=== PATIENT | female | born 1970 | race Caucasian/White ===

== ENCOUNTER 2019-07-03 08:16 | Outpatient (RCR) | payer OTHER, SELFPAY ==
--- NOTE | 2019-07-03 08:49 | PTOPEVAL ---
Thank you for referring this patient to [facility]. Please review, sign, date and return this plan of care CLAYTON. I agree with and certify that the following plan of care is medically necessary. Referring Physician Date Admitting Provider: Attending Provider: PHYSICIAN NOT ON STAFF Referring Provider: *PT Outpatient Evaluation Start: 07/03/19 07:50 Freq: Status: Active Protocol: Document 07/03/19 07:00 MANJU (Rec: 07/03/19 08:49 Estelle [id number]) Therapy Assessment Status Assessment Status Assessment Status Evaluation Evaluation Information Problem Diagnosis s/p R lower leg surgery Onset 05/23/19 Subjective Information patient reports she had Query Text:As Reported By Patient/ surgery on her R lower leg to Family fix the plantar fascitis in the foot. she reports she was in a boot for 5 weeks and is now out of her boot and ready to begin therapy. she reports she still has pain at times thorughout her day. she reports she is working and has has some increased pain in the R foot/heel still with working. Prior Level of Function Comments Additional Prior Level of Function patient stands for work for Comments long hours. she reports prior to surgery she was having pain in the heel with standing and all activities in WB. she reports prior to surgery she was able to run, ride a bike, and participate in workouts. Pain Assessment Timing of Pain Assessment Timing of Pain Assessment Assessment Pain Scale Pain Scale Used Numeric (1 - 10) Self Report Pain Assessment Right Heel(s) Reported Pain Level 2 Pain Description Aching,Soreness Pain Frequency Acute,Chronic,Intermittent Current Pain Intensity 2 Lowest Pain Intensity 0 Greatest Pain Intensity 6 Pain Level Goal 0 Pain Aggravating Factors Walking,Weight Bearing/ Standing Pain Score Pain Score 2: Self Report Lower Extremity Range of Motion Ankle/Foot Range of Motion Right Ankle Dorsiflextion With Knee Extension 25 Range of Motion - Active Ankle Plantarflexion Range of Motion - 42 Active Query Text: Left Ankle D
--- NOTE | 2019-08-08 15:35 | PCPTNOTE ---
Patient called and canelled treatment today. JT
== END 2019-08-11 15:15 | disposition home or self-care (01) ==
LOC: CHSPT 08:16
DX: S83.412A Sprain of medial collateral ligament of left knee, initial encounter (principal); Z98.890 Other specified postprocedural states
CPT/HCPCS: 97110; 97140; 97161

== ENCOUNTER 2019-08-08 13:53 | Outpatient (CLI) | payer OTHER, SELFPAY | END 2019-08-08 13:54 | disposition home or self-care (01) | LOC: CHSLAB 13:55 | PROVIDERS: PCP Internal Medicine; Visit Provider Specialist | DX: D22.5 Melanocytic nevi of trunk (principal) | CPT/HCPCS: 88305; 88342 ==

== ENCOUNTER 2019-09-05 14:35 | Outpatient (CLI) | payer OTHER, SELFPAY ==
--- NOTE | ~2019-09-05 | MM_ITS ---
EXAMINATION: MM screening [facility] BI w sarah HISTORY: Screening mammogram TECHNIQUE: Craniocaudal and mediolateral oblique 3-D tomosynthesis images were obtained and synthetic 2-D images were generated. CAD analysis was submitted and interpreted. COMPARISON: Comparison to multiple prior studies sequentially, with oldest reviewed study dated 03/22. BREAST PARENCHYMAL COMPOSITION: There are scattered areas of fibroglandular density. FINDINGS: There is no evidence of suspicious mass, calcification, or architectural distortion to sugg est malignancy in either breast. There has been no suspicious interval change. IMPRESSION: 1. No mammographic evidence of malignancy. 2. Recommend routine screening mammography in one year. BI-RADS Category 1: Negative Reviewed, dictated and finalized at location A.
== END 2019-09-05 14:36 | disposition home or self-care (01) ==
LOC: CHSIMG 14:38
PROVIDERS: PCP Internal Medicine; Visit Provider Obstetrics & Gynecology
DX: Z12.31 Encounter for screening mammogram for malignant neoplasm of breast (principal)
CPT/HCPCS: 77063; 77067

== ENCOUNTER 2020-09-05 13:53 | Outpatient (CLI) | payer OTHER, SELFPAY ==
--- NOTE | ~2020-09-05 | MM_ITS ---
EXAMINATION: MM screening [facility] BI w sarah HISTORY: Screening TECHNIQUE: Craniocaudal and mediolateral oblique 3-D tomosynthesis images were obtained and synthetic 2-D images were generated. CAD analysis was submitted and interpreted. COMPARISON: Comparison to multiple prior studies sequentially, with oldest reviewed study dated 04/21. BREAST PARENCHYMAL COMPOSITION: There are scattered areas of fibroglandular density. FINDINGS: There is developing asymmetry laterally in the right breast on CC view only. The left breas t is stable without evidence for malignancy. IMPRESSION: 1. Developing right breast asymmetry laterally on CC view. 2. Additional mammographic views and possible breast ultrasound are recommended. BI-RADS Category 0: Incomplete: Needs additional imaging evaluation. Reviewed, dictated and finalized at location A. IMPRESSION: 1. Developing right breast asymmetry laterally on CC view. 2. Additional mammographic views and possible breast ultrasound are recommended . BI-RADS Category 0: Incomplete: Needs additional imaging evaluation.
== END 2020-09-05 13:54 | disposition home or self-care (01) ==
LOC: CHSIMG 13:55
PROVIDERS: PCP Internal Medicine; Visit Provider Obstetrics & Gynecology
DX: Z12.31 Encounter for screening mammogram for malignant neoplasm of breast (principal)
CPT/HCPCS: 77063; 77067

== ENCOUNTER → 2020-09-21 05:20 | Outpatient (CLI) | payer OTHER, SELFPAY ==
[2020-09-21 19:33] LABS: SARS-CoV-2 RNA PCR Negative
== END ==
PROVIDERS: PCP Internal Medicine; Visit Provider Internal Medicine Gastroenterology
DX: Z01.812 Encounter for preprocedural laboratory examination (principal); Z20.822 Contact with and (suspected) exposure to COVID-19
CPT/HCPCS: C9803; U0003; U0005

== ENCOUNTER 2020-09-24 01:11 | Day surgery (SDC) | payer OTHER, SELFPAY ==
[2020-09-10 14:35] VITALS: BMI 31.1
[2020-09-24 07:54] VITALS: BP 137/53; PULSE 71; RESP 16; TEMP 36.4; O2SAT 99; BMI 29.5
[2020-09-24] MEDS: LACTATED RINGERS 1,000 ML 150 ML IV CONT (08:06)
--- NOTE | 2020-09-24 08:48 | WPDANESEPPF ---
Anes - Initial Pre Proc Eval Procedure: Operation Date: 09/24/20 09:00 Proposed Procedures p Screening Colonoscopy - Meir Shi MD Date/Time: 09/24/20 08:48 Surgeon: Meir Shi MD Pre Op Diagnosis: Neoplasm Screening Patient Data Age: 50 Gender: F Height: 5 ft 7 in Weight: 85.6 kg Last Vital Signs Temp 97.6 F 09/24/20 07:54 Pulse 71 09/24/20 07:54 Resp 16 09/24/20 07:54 BP 137/53 L 09/24/20 07:54 Pulse Ox 99 09/24/20 07:54 Allergies Allergy/AdvReac Type Severity Reaction Status Date / Time No Known Allergies Allergy Verified 09/24/20 07:52 Home Medications Medication Instructions Recorded Confirmed Type aspirin 81 mg tablet,delayed 81 mg PO DAILY 05/02/19 09/10/20 History release cholecalciferol (vitamin D3) 25 1,000 unit PO DAILY 05/02/19 09/10/20 History mcg (1,000 unit) capsule multivitamin 1 tablet PO DAILY 05/02/19 09/10/20 History esterified 1 tablet PO DAILY #90 tablet 06/12/20 09/10/20 Rx estrogens-methyltestosterone 1.25 mg-2.5 mg tablet progesterone micronized 100 mg 100 mg PO QAM #90 cap 06/12/20 09/10/20 Rx capsule sodium,potassium,mag sulfates 17.5 See Rx Instructions PO .COMPLEX 08/19/20 Rx gram-3.13 gram-1.6 gram oral soln #354 ml pregabalin 75 mg PO DAILY 09/10/20 09/10/20 History Patient hx anesthesia problems: none Family hx anesthesia problems: none PMFSH Past Medical History Medical History (Updated 09/24/20 @ 08:46 by Drew Hawkins MD) Peripheral neuropathy Varicose vein of leg Surgical History Surgical History History of nasal surgery Family History Family History Father Cerebrovascular accident Mother Family history of type 2 diabetes mellitus Social History Social History Smoking packs per day: 1 Smoking cigarettes per day: 20.0 Years smoked: 10 Smoking pack-years: 10.00 Smoking status: Former smoker Tobacco type: cigarettes Alcohol intake: never Substance use type: does not use Living arrangements: with family Spiritual care concerns: No Anes - Eval Final PreProcedure Day of Procedure 09/24/20 08:48 Patient weight: overweight Heart: regular rate and rhythm Lungs: clear to auscultation Airway: Mallampati scale class II Neurological: alert and oriented Last oral intake: >/= 8 hours ASA classification: II Emergent: no Anesthetic plan: proceed Anesthesia type and monitoring: general GIVS and standard monitoring Informed Consent: The patient's anesthetic plan and its attendant risks and benefits were discussed with the patient/family/POA. Questions were solicited and answers provided to the satisfaction of the patient/family/POA.
--- NOTE | 2020-09-24 08:54 | PM.HPGS ---
History of Present Illness History of Present Illness Consent: Risks, benefits, and alternatives have been discussed and questions answered. Patient agrees to proceed with procedure. Chief complaint: Neoplasm Screening Narrative: Genet More is a 50 year old female here for first screening colonoscopy Review of Systems Constitutional: Constitutional: Denies headache(s) and Denies weakness Eyes: Eyes: Denies blurry vision ENT: Reports Normal hearing present, Denies headache(s) and Denies neck pain Cardiovascular: Cardiovascular: Denies chest pain and Denies dyspnea Respiratory: Respiratory: Denies dyspnea Gastrointestinal: Gastrointestinal: Reports no additional gastrointestinal complaints Genitourinary: Genitourinary: Denies dysuria Musculoskeletal: Musculoskeletal: Denies neck pain Integumentary/Breasts: Skin/Breast: Denies dry skin Neurologic: Reports Normal hearing present, Denies headache(s) and Denies weakness Psychiatric: Psychiatric: Denies anxiety Endocrine: Endocrine: Denies change in body appearance Hematologic/Lymphatic: Hematologic/Lymphatic: Denies easy bleeding Allergic/Immunologic: Allergic/Immunologic: Denies urticaria [facility] Past Medical History Medical History (Updated 09/24/20 @ 08:54 by Meir Shi MD) Colon cancer screening Peripheral neuropathy Varicose vein of leg Surgical History Surgical History History of nasal surgery Family History Family History Father Cerebrovascular accident Mother Family history of type 2 diabetes mellitus Social History Social History Smoking packs per day: 1 Smoking cigarettes per day: 20.0 Years smoked: 10 Smoking pack-years: 10.00 Smoking status: Former smoker Tobacco type: cigarettes Alcohol intake: never Substance use type: does not use Living arrangements: with family Spiritual care concerns: No Meds Home Medications and Allergies Home Medications Medication Instructions Recorded Confirmed Type aspirin 81 mg tablet,delayed 81 mg PO DAILY 05/02/19 09/10/20 History release cholecalciferol (vitamin D3) 25 1,000 unit PO DAILY 05/02/19 09/10/20 History mcg (1,000 unit) capsule multivitamin 1 tablet PO DAILY 05/02/19 09/10/20 History esterified 1 tablet PO DAILY #90 tablet 06/12/20 09/10/20 Rx estrogens-methyltestosterone 1.25 mg-2.5 mg tablet progesterone micronized 100 mg 100 mg PO QAM #90 cap 06/12/20 09/10/20 Rx capsule sodium,potassium,mag sulfates 17.5 See Rx Instructions PO .COMPLEX 08/19/20 Rx gram-3.13 gram-1.6 gram oral soln #354 ml pregabalin 75 mg PO DAILY 09/10/20 09/10/20 History Allergies Allergy/AdvReac Type Severity Reaction Status Date / Time No Known Allergies Allergy Verified 09/24/20 07:52 Vital Signs Vital Signs - 24 hr 09/24/20 07:54 Temperature 97.6 F Pulse Rate 71 Respiratory Rate 16 Blood Pressure 137/53 L Pulse Oximetry 99 Exam Const: General: comfortable and no acute distress HENMT: General nose exam: Normal nares present Eyes: General: appearance normal, both eyes and all related structures Neck: Neck: no JVD Resp: Auscultation: clear to auscultation bilaterally Cardio: Rate: regular rate Rhythm: regular rhythm GI: Inspection: non-distended GI Palp: Yes Soft to palpation Skin: General skin exam: normal color Neuro: General: gait normal Speech: normal speech Extrem: General: normal to inspection Psych: Mental Status: mental status grossly normal Assessment and Plan Assessment and plan (1) Colon cancer screening: Code(s): Z12.11 - Encounter for screening for malignant neoplasm of colon Status: Acute Assessment and Plan: proceed with colonoscopy
[2020-09-24 09:21] VITALS: BP 116/60; PULSE 73; RESP 21; O2SAT 100
[2020-09-24 09:31] VITALS: BP 116/62; PULSE 64; RESP 23; O2SAT 100
[2020-09-24 09:41] VITALS: BP 122/62; PULSE 70; RESP 20; O2SAT 100
== END 2020-09-24 09:52 | disposition home or self-care (01) ==
PROVIDERS: PCP Internal Medicine; Visit Provider Internal Medicine Gastroenterology
PROC: 0DJD8ZZ Inspection of Lower Intestinal Tract, Via Natural or Artificial Opening Endoscopic (ICD-10-PCS; CPT 45378; principal; 2020-09-24 09:00)
DX: Z12.11 Encounter for screening for malignant neoplasm of colon (principal); K63.5 Polyp of colon; K57.30 Diverticulosis of large intestine without perforation or abscess without bleeding; K64.8 Other hemorrhoids; G62.9 Polyneuropathy, unspecified; Z79.82 Long term (current) use of aspirin; Z87.891 Personal history of nicotine dependence
CPT/HCPCS: 45385; 88305; C9803; J2704; J7120; U0003; U0005

== ENCOUNTER 2020-10-04 09:00 | Outpatient (CLI) | payer OTHER, SELFPAY ==
--- NOTE | ~2020-10-04 | MMUS_ITS ---
EXAMINATION: MM diagnostic richard RT w sarah, US breast RT limited HISTORY: Follow-up developing right breast asymmetry TECHNIQUE: Additional 3-D tomosynthesis images of the right breast were performed and synthetic 2-D i mages were generated. CAD analysis was submitted and interpreted. High resolution Limited right breas t ultrasound was performed. COMPARISON: 09/05/2020 BREAST PARENCHYMAL COMPOSITION: Breast composed of scattered areas of fibroglandular density FINDINGS: MAMMOGRAPHIC FINDINGS: There are no suspicious masses, calcifications or architectural distortion in the right breast to sug gest malignancy. ULTRASOUND: Limited right breast ultrasound: At 12:00, 2 cm from the nipple there is a 3 mm cyst. At 6:00, 2 cm f rom the nipple there is a 2 mm complicated cyst. No suspicious masses to suggest malignancy. IMPRESSION: 1. No evidence for malignancy in the right breast. 2. Routine yearly screening mammogram and regular clinical breast examination are recommended. BI-RADS Category 2: Benign finding(s). Reviewed, dictated and finalized at location A. IMPRESSION: 1. No evidence for malignancy in the right breast. 2. Routine yearly screening mammogram and regular clinical breast examination a re recommended. BI-RADS Category 2: Benign finding(s).
== END 2020-10-04 09:01 | disposition home or self-care (01) ==
PROVIDERS: PCP Internal Medicine; Visit Provider Obstetrics & Gynecology
DX: R92.8 Other abnormal and inconclusive findings on diagnostic imaging of breast (principal)
CPT/HCPCS: 76642; 77061; 77065; G0279

== ENCOUNTER 2020-10-14 09:23 | Outpatient (CLI) | payer OTHER, SELFPAY ==
[2020-10-14 09:32] LABS: Basophils Absolute Auto 0.04 K/mm3 (0.00-0.10); Basophils Percent Auto 0.8 % (0.0-1.0); Eosinophils Absolute Auto 0.09 K/mm3 (0.02-0.50); Eosinophils Percent Auto 1.7 % (1.0-6.0); Hematocrit 43.7 % (35.0-49.0); Hemoglobin 14.2 g/dL (12.0-15.0); Immature Granulocyte Absolute 0.01 K/mm3 (0.00-0.00); Immature Granulocyte Percent A 0.2 % (0.0-0.0); Lymphocytes Absolute Auto 2.14 K/mm3 (1.10-4.50); Lymphocytes Percent Auto 40.5 % (18.0-42.0); Mean Corpuscular HGB Conc 32.5 g/dL (32.0-36.0); Mean Corpuscular Volume 89.4 fL (78.0-102.0); Mean Platelet Volume 11.4 fl (9.2-11.8); Monocytes Absolute Auto 0.36 K/mm3 (0.10-0.90); Monocytes Percent Auto 6.8 % (2.0-11.0); Neutrophils Absolute Auto 2.7 K/mm3 (1.7-7.2); Platelet Count Result 238 K/mm3 (150-420); Red Blood Count 4.89 M/mm3 (4.20-5.40); Red Cell Distribution Width 11.9 % (11.6-14.4); White Blood Count 5.3 K/mm3 (4.8-10.8)
[2020-10-14 10:24] LABS: Alanine Aminotransferase 67 U/L (14-59); Albumin Level 3.9 g/dL (3.4-5.0); Alkaline Phosphatase 85 U/L (46-116); Anion Gap 6 mmol/L (8-16); Aspartate Amino Transferase 29 U/L (15-37); Bilirubin,Total 0.4 mg/dL (0.00-1.00); Blood Urea Nitrogen 20 mg/dL (7-18); Calcium 9.1 mg/dL (8.5-10.1); Carbon Dioxide 29 mmol/L (21-32); Chloride 103 mmol/L (98-108); Cholesterol 222 mg/dL (0-200); Estimated Glomerular Filt Rate > 60; Glucose 92 mg/dL (70-99); HDL Direct 49 mg/dL (40-60); LDL Cholesterol Calculated 158 mg/dL (<130); Osmolality Calculated 288 mOsm/kg (285-295); Potassium 4.3 mmol/L (3.5-5.1); Sodium 138 mmol/L (136-145); Thyroid Stimulating Hormone 3.37 uIU/mL (0.36-3.74); Triglycerides 73 mg/dL (0-150)
[2020-10-14 12:38] LABS: Ferritin 270 ng/mL (8-252); GGT 56 U/L (5-55)
[2020-10-14 15:25] LABS: Add Urine Microscopic? NO; Appearance Urine Clear (Clear); Bilirubin Urine Negative (Negative); Blood Urine Negative (Negative); Color Urine Yellow (Yellow); Glucose Urine UA Negative (Negative); Ketones Urine Negative (Negative); Leukocyte Esterase Ur Negative (Negative); Nitrate Urine Negative (Negative); Protein Urine Negative (Negative); Specific Grav Ur >= 1.030 (1.010-1.020); Urobilinogen Urine 0.2 mg/dL (0.2-1.0); pH Urine 5.5 (5.0-8.0)
[2020-10-16 19:40] LABS: Hepatitis A Antibody IgM Nonreactive; Hepatitis B Core Antibody Nonreactive (Nonreactive); Hepatitis B Surface Antigen Nonreactive (Nonreactive); Hepatitis C Signal to Cutoff 0.01 ratio (<1.00); Hepatitis C Virus Antibody Nonreactive (Nonreactive)
== END 2020-10-14 09:24 | disposition home or self-care (01) ==
LOC: CHSLAB 09:25
PROVIDERS: PCP Internal Medicine; Visit Provider Internal Medicine
DX: Z00.00 Encounter for general adult medical examination without abnormal findings (principal); R94.5 Abnormal results of liver function studies
CPT/HCPCS: 36415; 80053; 80061; 80074; 81003; 82728; 82977; 84443; 85025

== ENCOUNTER 2021-02-04 10:54 | Outpatient (CLI) | payer OTHER, SELFPAY ==
--- NOTE | ~2021-02-04 | XR_ITS ---
EXAMINATION: XR hand RT min 3V DATE: 02/04/2021 11:23 INDICATION: Right hand injury. Right thumb pain. TECHNIQUE: 3 views of right hand were obtained. COMPARISON: None. FINDINGS: Bone alignment is normal. No fracture. There is mild osteoarthritis of first carpometacarpa l joint, first metacarpophalangeal joint, and first interphalangeal joint. IMPRESSION: 1. Mild polyarticular osteoarthritis. Reviewed, dictated and finalized at location B.
--- NOTE | ~2021-02-04 | XR_ITS ---
EXAMINATION: XR wrist RT min 3V DATE: 02/04/2021 11:23 INDICATION: Right wrist injury. Right thumb pain. TECHNIQUE: 4 views of right wrist were obtained. COMPARISON: None. FINDINGS: Bone alignment is normal. No fracture. There is mild osteoarthritis of first carpometacarpa l joint. IMPRESSION: 1. Mild osteoarthritis of first carpometacarpal joint. Reviewed, dictated and finalized at location B.
== END 2021-02-04 10:55 | disposition home or self-care (01) ==
LOC: CHSIMG 10:55
PROVIDERS: PCP Internal Medicine; Visit Provider Internal Medicine
DX: S69.91XA Unspecified injury of right wrist, hand and finger(s), initial encounter (principal)
CPT/HCPCS: 73110; 73130

== ENCOUNTER 2021-03-14 09:07 | Outpatient (CLI) | payer OTHER, SELFPAY ==
--- NOTE | ~2021-03-14 | XR_ITS ---
EXAMINATION: XR wrist RT min 3V EXAM DATE: 03/14/2021 09:33 INDICATION: Fx R distal radius-seen On Mri, follow Up, stiffness . TECHNIQUE: Right wrist frontal, frontal with ulnar deviation, oblique and lateral projections obtain ed and reviewed. Comparison is made to prior examination from 01/25/2021. FINDINGS: Right wrist scapholunate joint space is maintained. Possible tiny chip fracture off of the right radial distal metaphysis. No periosteal reaction or other suspicious findings. No evidence of s caphoid avascular necrosis. IMPRESSION: Possible tiny chip fracture off the posterior aspect right radial metaphysis. Reviewed, dictated and finalized at location B.
== END 2021-03-14 09:08 | disposition home or self-care (01) ==
PROVIDERS: PCP Internal Medicine; Visit Provider Internal Medicine
DX: S52.501D Unspecified fracture of the lower end of right radius, subsequent encounter for closed fracture with routine healing (principal)
CPT/HCPCS: 73110

== ENCOUNTER 2021-03-24 12:59 | Outpatient (RCR) | payer OTHER, SELFPAY ==
--- NOTE | 2021-03-24 14:19 | OTOPEVAL ---
Thank you for referring Genet More to [facility].? The patient is scheduled to be seen for therapy? ____x/week for ___ weeks. Please review, sign, date and return this plan of care CLAYTON. I agree with and certify that the following plan of care is medically necessary. Referring Physician Date Admitting Provider: Attending Provider: Joana Ponce MD Referring Provider: *OT Outpatient Evaluation Start: 03/24/21 12:30 Freq: Status: Active Protocol: Document 03/24/21 13:01 [facility] (Rec: 03/24/21 14:19 [facility] [id number]) Therapy Assessment Status Assessment Status Assessment Status Evaluation Outpatient Past Medical History Neurological History Hx Neurological Disorders No Significant History Cardiovascular History Hx Cardiac Disorders No Significant History Respiratory History Hx Respiratory Disorders No Significant History Gastrointestinal History Hx Gastrointestinal Disorders No Significant History Genitourinary History Hx Genitourinary Disorders No Significant History Musculoskeletal History Hx Orthopedic Surgery Yes: Plantar fasciitis Hx Other Musculoskeletal Disorders Yes: Nueropathy Hematological History Hx Hematological Disorders No Significant History Endocrine History Hx Endocrine Disorders No Significant History HEENT History Hx HEENT Disorders No Significant History Reproductive History Hx Post Menopausal Yes Evaluation Information Problem Diagnosis pain, decreased ROM in R wrist Onset 02/23/21 Cause R distal radius fracture Subjective Information Patient reports that she fell Query Text:As Reported By Patient/ on 02/23/21 and broke her R Family distal radius. Patient was in a splint for 2 weeks and then had an MRI taken that showed a fracture therefore spent 3 weeks in a cast. Patient has been out of the cast for 1 week and reports that it hurts worse now that it did when it was initially fractured. Patient reports that opening any container and carrying/ lifting anything is very difficult and painful. 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 Patient currently wears a splint while at work and at night. QuickDASH: 50.0% Diagnostic Tests X-Rays For This Problem Yes MRI For This Problem
--- NOTE | 2021-04-03 13:17 | PCOTNOTE ---
On 03/28/21, the student, [ Elza Sumner], provided care and completed [facility] documentation on this patient. I have reviewed the student's documentation and agree with the findings.MS
--- NOTE | 2021-04-03 13:18 | PCOTNOTE ---
On 04/02/21, the student, [Elza Sumner ], provided care and completed [facility] documentation on this patient. I have reviewed the student's documentation and agree with the findings.MS
--- NOTE | 2021-04-03 13:18 | PCOTNOTE ---
On 04/03/21, the student, [Elza Sumner ], provided care and completed [facility] documentation on this patient. I have reviewed the student's documentation and agree with the findings.MS
--- NOTE | 2021-04-29 14:51 | OTOPEVAL ---
Thank you for referring Genet More to [facility].? The patient is scheduled to be seen for therapy? ____x/week for ___ weeks. Please review, sign, date and return this plan of care CLAYTON. I agree with and certify that the following plan of care is medically necessary. Referring Physician Date Admitting Provider: Attending Provider: Joana Ponce MD Referring Provider: *OT Outpatient Evaluation Start: 03/24/21 12:30 Freq: Status: Active Protocol: Document 04/29/21 14:05 [facility] (Rec: 04/29/21 14:50 [facility] [place] [id number]) Therapy Assessment Status Assessment Status Assessment Status Discharge Outpatient Past Medical History Neurological History Hx Neurological Disorders No Significant History Cardiovascular History Hx Cardiac Disorders No Significant History Respiratory History Hx Respiratory Disorders No Significant History Gastrointestinal History Hx Gastrointestinal Disorders No Significant History Genitourinary History Hx Genitourinary Disorders No Significant History Musculoskeletal History Hx Orthopedic Surgery Yes: Plantar fasciitis Hx Other Musculoskeletal Disorders Yes: Nueropathy Hematological History Hx Hematological Disorders No Significant History Endocrine History Hx Endocrine Disorders No Significant History HEENT History Hx HEENT Disorders No Significant History Reproductive History Hx Post Menopausal Yes Evaluation Information Problem Subjective Information Patient reports that overall Query Text:As Reported By Patient/ her R wrist feels better but Family does continue to be painful at times. Patient is working and back to doing all hobbies and activities. Pain Assessment Timing of Pain Assessment Timing of Pain Assessment Re-assessment Self Report Self Report Pain Level 0 Pain Score Pain Score 0: Self Report Upper Extremity Range of Motion Wrist Range of Motion Right Wrist Flexion - Active 55 Wrist Extension - Active 65 Upper Extremity Muscle Strength Testing Wrist Strength Right Wrist Flexion Strength 5 Normal Wrist Extension Strength 5 Normal Hand Vaccine Customer Representative/Pinch Strength Assessment Hand Right Vaccine Customer Representative Strength (lbs) 60 Extremity Circumference Assessment Circumference Assessment Location Right Circumference Comments 16.25 cm General Exercise General Exercises Side Right Exercise Type Active Exercise Description 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
== END 2021-04-29 15:15 | disposition home or self-care (01) ==
LOC: CHSOT 12:59
PROVIDERS: PCP Internal Medicine; Visit Provider Internal Medicine
DX: S52.501D Unspecified fracture of the lower end of right radius, subsequent encounter for closed fracture with routine healing (principal)
CPT/HCPCS: 97014; 97110; 97140; 97165; G0283

== ENCOUNTER 2021-04-17 09:50 | Outpatient (CLI) | payer OTHER, SELFPAY ==
--- NOTE | ~2021-04-17 | XR_ITS ---
EXAMINATION: XR wrist RT min 3V INDICATION: Right distal radius fracture follow-up TECHNIQUE: Four views of the right wrist are obtained. COMPARISON: 03/14/2021, 02/04/2021 FINDINGS: There is no fracture, dislocation, or subluxation. There is mild osteoarthritis at the bhavesh caphe and first carpometacarpal joints. The soft tissues are unremarkable. IMPRESSION: 1. Mild osteoarthritis. Reviewed, dictated and finalized at location A. IMPRESSION: 1. Mild osteoarthritis.
== END 2021-04-17 09:51 | disposition home or self-care (01) ==
PROVIDERS: PCP Internal Medicine; Visit Provider Internal Medicine
DX: S52.501D Unspecified fracture of the lower end of right radius, subsequent encounter for closed fracture with routine healing (principal)
CPT/HCPCS: 73110

== ENCOUNTER 2021-05-22 13:06 | Outpatient (CLI) | payer OTHER, SELFPAY ==
[2021-05-22 13:41] LABS: Alanine Aminotransferase 79 U/L (14-59); Albumin Level 3.9 g/dL (3.4-5.0); Alkaline Phosphatase 80 U/L (46-116); Anion Gap 7 mmol/L (8-16); Aspartate Amino Transferase 41 U/L (15-37); Bilirubin,Total 0.5 mg/dL (0.00-1.00); Blood Urea Nitrogen 25 mg/dL (7-18); Calcium 8.7 mg/dL (8.5-10.1); Carbon Dioxide 31 mmol/L (21-32); Chloride 106 mmol/L (98-108); Estimated Glomerular Filt Rate 54; Glucose 85 mg/dL (70-99); Osmolality Calculated 301 mOsm/kg (285-295); Potassium 4.9 mmol/L (3.5-5.1); Sodium 144 mmol/L (136-145)
[2021-05-22 16:11] LABS: Ferritin 251 ng/mL (8-252); GGT 59 U/L (5-55)
== END 2021-05-22 13:07 | disposition home or self-care (01) ==
LOC: CHSLAB 13:08
PROVIDERS: PCP Internal Medicine; Visit Provider Internal Medicine
DX: R79.89 Other specified abnormal findings of blood chemistry (principal)
CPT/HCPCS: 36415; 80053; 82728; 82977

== ENCOUNTER 2021-05-28 08:50 | Outpatient (CLI) | payer OTHER, SELFPAY ==
--- NOTE | ~2021-05-28 | US_ITS ---
EXAMINATION: US right upper quadrant DATE: 05/28/2021 09:15 INDICATION: Abnormal liver function tests. TECHNIQUE: Multiple grayscale and Doppler ultrasound images of the abdomen were obtained. COMPARISON: None FINDINGS: The visualized portions of the head and body of the pancreas are normal. The liver is samantha l without focal lesion. No liver surface nodularity. There is normal flow in main portal vein. The ga llbladder is normal in size and contains sludge. No gallstones or gallbladder wall thickening. There was no sonographic Prado sign. The common duct is normal and measures 3 mm. IMPRESSION: 1. Gallbladder sludge. No evidence of acute cholecystitis. Reviewed, dictated and finalized at location A. OL ADMINISTRATOR
== END 2021-05-28 08:51 | disposition home or self-care (01) ==
LOC: CHSIMG 08:52
PROVIDERS: PCP Internal Medicine; Visit Provider Internal Medicine
DX: R94.5 Abnormal results of liver function studies (principal)
CPT/HCPCS: 76705

== ENCOUNTER 2021-10-06 14:01 | Outpatient (CLI) | payer BC, SELFPAY ==
--- NOTE | ~2021-10-06 | MM_ITS ---
EXAMINATION: MM screening [facility] BI w sarah HISTORY: Screening mammogram TECHNIQUE: Craniocaudal and mediolateral oblique 3-D tomosynthesis images were obtained and synthetic 2-D images were generated. CAD analysis was submitted and interpreted. COMPARISON: diagnostic right mammogram and limited right breast ultrasound 09/05/2020, 09/05/2019 bilateral screening mammogram examinations BREAST PARENCHYMAL COMPOSITION: There are scattered areas of fibroglandular density. FINDINGS: There is no evidence of suspicious mass, calcification, or architectural distortion to sugg est malignancy in either breast. There has been no suspicious interval change. IMPRESSION: 1. No mammographic evidence of malignancy. 2. Recommend routine screening mammography in one year. BI-RADS Category 1: Negative Reviewed, dictated and finalized at location A.
== END 2021-10-06 14:02 | disposition home or self-care (01) ==
PROVIDERS: PCP Internal Medicine; Visit Provider Obstetrics & Gynecology
DX: Z12.31 Encounter for screening mammogram for malignant neoplasm of breast (principal)
CPT/HCPCS: 77063; 77067

== ENCOUNTER 2022-01-16 10:13 | Outpatient (CLI) | payer BC, SELFPAY ==
--- NOTE | ~2022-01-16 | US_ITS ---
EXAMINATION: US carotid duplex BI DATE: 01/16/2022 11:01 INDICATION: Carotid stenosis TECHNIQUE: Grayscale, color Doppler, and pulsed Doppler images of the cervical carotid arteries were obtained. The degree of vessel stenosis is placed in one of the following categories: normal, <50%, 5 0-69%, >=70% but less than near-occlusion, near-occlusion, or total occlusion. Note that percent sten osis relative to normal distal artery lumen diameter is indirectly measured from velocity measurement s as described by Obi, et al. Radiology 2003; 229:340-346. Notes: Normal: Peak systolic velocity <125 centimeters/sec and no plaque <50%. Peak systolic velocity <125 ( EDV <40; ICA/CCA PSV ratio <2.0; used these factors only a tandem lesions or low cardiac output or co ntralateral disease) 50-69 %: PSV 125-230 (EDV 40-100; ratio 2-4) >= 70% but less than near occlusion: PSV greater than 230 (EDV > 100; ratio> 4.0) Near Occlusion: PSV that is variable; markedly narrowed lumen Occlusion: Absent flow on color/spectral Doppler and no lumen on berry scale. COMPARISON: None. FINDINGS: RIGHT: The right common carotid artery (CCA) peak systolic velocity (PSV) is 97 cm/s. The right internal car otid artery (ICA) PSV is 89 cm/s. The right ICA end-diastolic velocity (EDV) is 36 cm/s. The right IC A/CCA PSV ratio is 0.9. The external carotid artery (ECA) PSV is 96 cm/s. There is antegrade flow in the right vertebral artery. LEFT: The left CCA PSV is 84 cm/s. The left ICA PSV is 97 cm/s. The left ICA EDV is 37 cm/s. The left ICA/C CA PSV ratio is 1.2. The ECA PSV is 118 cm/s. There is antegrade flow in the left vertebral artery. IMPRESSION: 1. Less than 50% stenosis in the right internal carotid artery by sonographic criteria. 2. Less than 50% stenosis in the left internal carotid artery by sonographic criteria. Reviewed, dictated and finalized at location A. IMPRESSION: 1. Less than 50% stenosis in the right internal carotid artery by sonographic yady saul. 2. Less than 50% stenosis in the left internal carotid artery by sonographic luis erickson.
== END 2022-01-16 10:14 | disposition home or self-care (01) ==
LOC: CHSIMG 10:15
PROVIDERS: PCP Internal Medicine
DX: I65.29 Occlusion and stenosis of unspecified carotid artery (principal)
CPT/HCPCS: 93880

== ENCOUNTER 2022-10-08 13:48 | Outpatient (CLI) | payer BC, SELFPAY ==
--- NOTE | ~2022-10-08 | MM_ITS ---
EXAMINATION: MM screening [facility] BI w sarah HISTORY: Screening mammogram TECHNIQUE: Craniocaudal and mediolateral oblique 3-D tomosynthesis images were obtained and synthetic 2-D images were generated. CAD analysis was submitted and interpreted. COMPARISON: 10/06/2021, 10/04/2020, 09/05/2020 BREAST PARENCHYMAL COMPOSITION: There are scattered areas of fibroglandular density. FINDINGS: No suspicious mass, calcification, or architectural distortion are identified in either letha ast to suggest malignancy. There has been no suspicious interval change. IMPRESSION: 1. No mammographic evidence of malignancy. 2. Recommend routine screening mammography in one year. BI-RADS Category 1: Negative Reviewed, dictated and finalized at location A.
== END 2022-10-08 13:49 | disposition home or self-care (01) ==
LOC: CHSIMG 13:52
PROVIDERS: PCP Internal Medicine; Visit Provider Obstetrics & Gynecology
DX: Z12.31 Encounter for screening mammogram for malignant neoplasm of breast (principal)
CPT/HCPCS: 77063; 77067

== ENCOUNTER 2023-01-28 14:10 | Outpatient (CLI) | payer BC, SELFPAY ==
--- NOTE | ~2023-01-28 | US_ITS ---
EXAMINATION: US carotid duplex BI DATE: 01/28/2023 14:38 INDICATION: Carotid artery stenosis TECHNIQUE: Grayscale, color Doppler, and pulsed Doppler images of the cervical carotid arteries were obtained. The degree of vessel stenosis is placed in one of the following categories: normal, <50%, 5 0-69%, >=70% but less than near-occlusion, near-occlusion, or total occlusion. Note that percent sten osis relative to normal distal artery lumen diameter is indirectly measured from velocity measurement s as described by Obi, et al. Radiology 2003; [id number]. COMPARISON: 01/16/2022 FINDINGS: RIGHT: The right common carotid artery (CCA) peak systolic velocity (PSV) is 100 cm/s. The right internal ca rotid artery (ICA) PSV is 128 cm/s. The right ICA end-diastolic velocity (EDV) is 57 cm/s. The right ICA/CCA PSV ratio is 1.3. Grayscale and color Doppler images including secondary Doppler criteria yie ld an estimate of <50% diameter reduction from minimal plaque in the ICA. The external carotid artery (ECA) PSV is 108 cm/s. There is antegrade flow in the right vertebral artery. LEFT: The left CCA PSV is 95 cm/s. The left ICA PSV is 105 cm/s. The left ICA EDV is 25 cm/s. The left ICA/ CCA PSV ratio is 1.1. Grayscale and color Doppler images yield an estimate of <50% diameter reduction from minimal plaque in the ICA. The ECA PSV is 87 cm/s. There is antegrade flow in the left vertebra l artery. IMPRESSION: 1. <50% stenosis from minimal plaque in the right internal carotid artery. 2. <50% stenosis from minimal plaque in the left internal carotid artery. Reviewed, dictated and finalized at location L.
== END 2023-01-28 14:11 | disposition home or self-care (01) ==
LOC: CHSIMG 14:10
PROVIDERS: PCP Internal Medicine
DX: I65.29 Occlusion and stenosis of unspecified carotid artery (principal)
CPT/HCPCS: 93880

== ENCOUNTER 2023-07-17 11:57 | Emergency (ER) | payer OTHER, SELFPAY ==
[2023-07-17 11:59] VITALS: BP 159/84; PULSE 101; RESP 20; TEMP 36.6; O2SAT 100
--- NOTE | 2023-07-17 12:45 | ED.WOUNDLAC ---
HPI - Wound/Laceration General Chief Complaint: Wound/Laceration Stated Complaint: CUT FINGER Time Seen by Provider: 07/17/23 11:59 Source: patient and family Mode of arrival: ambulatory Limitations: no limitations History of Present Illness HPI narrative: 53 yo F presents to ED for left index finger laceration. 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 Pt does not know when her last Tdap was Onset (ago): hour(s) Extremity Location: Left: hand (index finger) Place: work Patient tetanus UTD: No Context: accidental Associated symptoms: pain Treatments prior to arrival: bandage Related Data Home Medications Medication Instructions Recorded Confirmed aspirin 81 mg tablet,delayed 81 mg PO DAILY 05/02/19 07/17/23 release multivitamin (Daily Multi-Vitamin 1 tablet PO DAILY 05/02/19 07/17/23 tablet) pregabalin 75 mg capsule 75 mg PO DAILY 09/10/20 07/17/23 Allergies Allergy/AdvReac Type Severity Reaction Status Date / Time No Known Allergies Allergy Verified 07/17/23 12:04 Review of Systems Constitutional: Constitutional: Reports as per HPI and Reports no additional constitutional complaints Eyes: Eyes: Reports as per HPI and Reports no additional eye complaints ENT: Reports system reviewed and no additional complaints, except as documented and Reports as per HPI Cardiovascular: Cardiovascular: Reports as per HPI and Reports no additional cardiovascular complaints Respiratory: Respiratory: Reports as per HPI and Reports no additional respiratory complaints Gastrointestinal: Gastrointestinal: Reports as per HPI and Reports no additional gastrointestinal complaints Genitourinary: Genitourinary: Reports as per HPI Musculoskeletal: Musculoskeletal: Reports no additional musculoskeletal complaints and Reports as per HPI Integumentary/Breasts: Skin/Breast: Reports system reviewed and no additional complaints, except as docu and Reports as per HPI Neurologic: Reports system reviewed and no additional complaints, except as documented and Reports as per HPI Psychiatric: Psychiatric: Reports no additional psychiatric complaints and Reports as per HPI Endocrine: Endocrine: Reports no additional endocrine complaints and Reports as per HPI Hematologic/Lymphatic: Hematologic/Lymphatic: Reports no additional hematologic/lymphatic complaints and Reports as per HPI Allergic/Immunologic: Allergic/Immunologic: Reports no additional allergic/immunologic complaints and Reports as per HPI PMFSH Past Medical History Medical History Colon cancer screening Peripheral neuropathy Plantar fasciitis Varicose vein of leg Surgical History Surgical History History of nasal surgery Family History Family History Father Cerebrovascular accident Mother Family history of type 2 diabetes mellitus Social History Social History Smoking packs per day: 1 Smoking cigarettes per day: 20.0 Years smoked: 10 Smoking pack-years: 10.00 Smoking status: Former smoker Tobacco type: cigarettes Alcohol intake: never Substance use type: does not use Living arrangements: with family Spiritual care concerns: No Exam Const: General: cooperative, healthy appearing, comfortable, no acute distress, well developed, alert, awake, average body habitus and well nourished Nutritional Appearance: average body habitus and well nourished Orientation/consciousness: oriented to person, oriented to place and oriented to time Limitations: no limitations Neck: Neck: normal visual inspection, full ROM and no lymphadenopathy Thyroid: thyroid normal Lymphatic: no lymphadenopathy noted Chest: Chest palpation & inspection: normal inspection of the chest an
[2023-07-17] MEDS: TETANUS,DIPHTHERIA,AC PERTUSSIS ADULT 0.5 ML (ADACEL) IM (12:56)
[2023-07-17] MEDS: LIDOCAINE HCL 1% LOCAL INJ 10 ML VIAL 5 ML INFILTRATE (12:57)
[2023-07-17 13:06] VITALS: BP 140/80; PULSE 88; RESP 20; TEMP 36.7; O2SAT 100
== END 2023-07-17 13:08 | disposition home or self-care (01) ==
PROVIDERS: Emergency Provider Emergency Medicine
DX: S61.211A Laceration without foreign body of left index finger without damage to nail, initial encounter (principal); Z79.82 Long term (current) use of aspirin; Z87.891 Personal history of nicotine dependence; Z23 Encounter for immunization; W26.0XXA Contact with knife, initial encounter; Y92.512 Supermarket, store or market as the place of occurrence of the external cause; Y99.0 Civilian activity done for income or pay
CPT/HCPCS: 12001; 90471; 90715; 99282

== ENCOUNTER 2023-10-12 14:10 | Outpatient (CLI) | payer BC, SELFPAY ==
--- NOTE | ~2023-10-12 | MM_ITS ---
EXAMINATION: MM screening [facility] BI w sarah HISTORY: Screening mammogram TECHNIQUE: Craniocaudal and mediolateral oblique 3-D tomosynthesis images were obtained and synthetic 2-D images were generated. CAD analysis was submitted and interpreted. COMPARISON: October 08, 2022, October 06, 2021 bilateral screening mammogram examinations BREAST PARENCHYMAL COMPOSITION: There are scattered areas of fibroglandular density. FINDINGS: There is no evidence of suspicious mass, calcification, or architectural distortion to sugg est malignancy in either breast. There has been no suspicious interval change. IMPRESSION: 1. No mammographic evidence of malignancy. 2. Recommend routine screening mammography in one year. BI-RADS Category 1: Negative Reviewed, dictated and finalized at location A.
== END 2023-10-12 14:11 | disposition home or self-care (01) ==
LOC: CHSIMG 14:11
PROVIDERS: PCP Internal Medicine; Visit Provider Obstetrics & Gynecology
DX: Z12.31 Encounter for screening mammogram for malignant neoplasm of breast (principal)
CPT/HCPCS: 77063; 77067

== ENCOUNTER 2024-05-25 08:55 | Outpatient (CLI) | payer BC, SELFPAY ==
[2024-06-18 13:04] VITALS: BMI 30.8
--- NOTE | 2024-06-18 13:04 | WPDHOMESLEEP ---
Sleep Study - Home Unattended Date of Study: 05/25/24 Ordering Provider: Adan Wright APRN Interpreting Provider: Elsy Clarke, DO Home Sleep Study Type: Watch PAT Height: 1.7 m Weight: 89.358 kg Body Mass Index: 30.8 Neck Circumference (inches): 16 [place]: 5 Reason for Sleep Study Daytime hypersomnia Sleep History The patient is a 54-year-old female that had a sleep study ordered by the pulmonary group for evaluation of sleep apnea. The patient admits to snoring loudly as well as excessive daytime sleepiness. She denies interruptions and breathing while asleep. She denies choking or gasping at night. She denies having trouble breathing on her back. She denies morning headaches. She denies having a dry or sore mouth/ throat in the morning. She denies nocturnal heartburn. She urinates twice throughout the night. She does have difficulty falling asleep. She does not have difficulty staying asleep. She is able to return to sleep if she wakes up throughout the night. She denies any hypnotic or sedative use. She denies feeling anxious about sleep. She denies feeling tired or sleepy during the day. She denies feeling tired in the morning. She does have the urge to fall asleep during the day. She denies feeling drowsy while driving. She denies sleep paralysis, cataplexy and hypnagogic / hypnopompic hallucinations. She denies clenching or grinding her teeth. She does kick her jerk her legs excessively. He denies having a restless feeling in her legs. She goes to bed at 10:30 p.m. on work days and at 11:00 p.m. on her days off. It takes her 45 minutes to fall asleep. She gets 7 hours of sleep on her work days and 9 hours of sleep on her days off. Her sleep is not restorative on her days off. She denies taking any planned naps. She denies dream enactment behavior. She denies sleep walking. She consumes 3-4 cups of caffeinated beverage per day. She consumes 1 alcoholic beverage 1-2 nights per week. She denies tobacco use. She exercises 3-4 nights per week. [facility] Past Medical History Medical History Plantar fasciitis Colon cancer screening Peripheral neuropathy Varicose vein of leg removal of veins ~ 2002, 2010 Surgical History Surgical History History of orthopedic surgery ~2008 R foot surgery for plantar fasciitis History of nasal surgery Family History Family History Father Cerebrovascular accident Mother Family history of type 2 diabetes mellitus Social History Social History Smoking packs per day: 1 Smoking cigarettes per day: 20.0 Years smoked: 10 Smoking pack-years: 10.00 Smoking status: Former smoker Tobacco type: cigarettes Alcohol intake: current Alcohol use details: rarely Substance use: never Substance use type: does not use Do You Feel Safe in your Home?: Yes Lack of Transportation: No Lack of Food: Never True Current Housing: I Have Housing Concerned About Future Housing: No Difficulty Paying Gas/Electric Bills: No Difficulty Paying for Meds: No Currently Unemployed: YES Education: High School Diploma/GED Difficulty w/ Childcare or Family Care: No Living arrangements: with family Occupation/Education: unemployed Gender identity (if verbalized by the patient): Female Sexual Orientation (if Verbalized by the Patient): Straight or Heterosexual Spiritual care concerns: No Medications Home Medications ?Medication ?Instructions ?Recorded ?Confirmed ?Type aspirin 81 mg tablet,delayed 81 mg PO DAILY 05/02/19 03/01/24 History release multivitamin (Daily Multi-Vitamin 1 tablet PO DAILY 05/02/19 03/01/24 History tablet) pregabalin 75 mg capsule 75 mg PO DAILY 09/10/20 03/01/24 History estrogen .2 - testosterone .5 topical 02/08/24 03/01/24 History cream progesterone micronized 100 mg 100 mg PO QHS 02/08/24 03/01/24 History capsule Sleep Procedure The sleep study was completed using [employer] a technically adequate device with seven channels: peripheral arterial tone, actigraphy, body position, snore, respiratory movement, pulse oximetry, sleep staging, and heart rate. Prior to using the device, the patient received verbal and written instructions for its application and was provided with the help desk phone number for additional telephonic instruction with 24-hour availability of qualified personnel to answer questions. The study was scored using CMS guidelines. Sleep Architecture The total recording time is 9 hrs, 57 min. The total sleep time is 8 hrs, 34 min. Sleep latency is 17 minutes. REM latency is 103 minutes. The patient had 11 episodes of waking. Sleep architecture shows 20.3% deep sleep, 62.3% light sleep, and (as % Total Sleep Time) showed NREM (Light 62.3%; Deep 20.3%), and a 17.4% stage REM. The patient spent 44.9% of total sleep time in the supine position. Sleep efficiency was 86.10. Respiratory Analysis The overall AHI (pAHI 4%:) is 5.2. The central AHI is 0.4. The AHI was 3.0 in NREM and 15.6 in REM sleep. The AHI was 8.6 in Supine and 2.4 in Non-supine sleep. Percent of Petr Katz respirations is 0.0. Oximetry Data The oxygen desaturation index (REKHA 4%:) is 5.2. The mean saturation is 94%, and the lowest saturation is 88%. Time spent with saturation < 88% is 0.1 minutes. Snoring Profile Snoring average intensity is 40 dB. The patient snored above 45 decibels for 10.2 minutes, 2.0% of sleep time. Cardiac Profile The average pulse rate is 58 beats per minutes. The lowest pulse rate is 44 bpm. The highest pulse rate reported is 94 bpm. Atrial fibrillation was not detected. Premature beats occur 0.3 per minute. Assessment and Plan Assessment and Plan (1) ANTHONY (obstructive sleep apnea): Code(s): G47.33 - Obstructive sleep apnea (adult) (pediatric) Status: Acute Assessment and Plan: The patient had an overall AHI of 5.2 with desaturation down to 88%. This is consistent with mild sleep apnea. Due to the patient's excessive daytime sleepiness (ESS of 10/24), the patient qualifies for treatment. I recommend that the patient be prescribed Resmed AutoPAP 5-15 cm H2O, CPAP mask/filters/tubing and heated humidity. This should be used with all episodes of sleep.? Compliance should be reviewed within 31-90 days of starting therapy for usage greater than 4 hours per night greater than 70% of the nights. The patient should be asked about symptoms such as?excessive daytime sleepiness, quality of sleep, decreased nocturia, increased?mental functioning such as memory, mood, and concentration. Data The data obtained during this sleep study is adequate for interpretation. Certification This sleep study has been reviewed by a board certified sleep medicine physician.
== END 2024-05-26 15:04 | disposition home or self-care (01) ==
LOC: ANHCSM 08:56
PROVIDERS: PCP Internal Medicine; Visit Provider Nurse Practitioner Family
DX: G47.33 Obstructive sleep apnea (adult) (pediatric) (principal); R06.83 Snoring
CPT/HCPCS: 95800

== ENCOUNTER 2024-07-10 07:57 | Outpatient (RCR) | payer BC, SELFPAY ==
--- NOTE | 2024-07-10 10:37 | OPREHPOC ---
Outpatient Therapy Plan of Care This is a Multidisciplinary Plan of Care that may contain components documented by all disciplines (PT, OT, and ST.) PT Problem 1 PT Problem #1 Knowledge Deficit PT Goal 1 Goal / Goal Update Independent with HEP Target Visit 2 PT Problem 2 PT Problem #2 Impaired Strength PT Goal 1 Goal / Goal Update Improve gross lower extremity strength to 5/5. Improve gross lower extremity strength 5/5 for adequate dynamic stability and mechanics with functional tasks. Target Visit 12 PT Problem 3 PT Problem #3 Impaired Functional Mobility PT Goal 1 Goal / Goal Update Pt to be able to stand for more than 1 hour without onset of pain. Pt to be able to stand for more than 1 hour without pain to complete normal work activities. Target Visit 12 PT Problem 4 PT Problem #4 Impaired Flexibility PT Goal 1 Goal / Goal Update Pt to reach 10 degrees of active ankle dorsiflexion with knee extended bilaterally for improved ankle flexibility. Pt to improve gastroc/soleus flexibility for reduced plantar fascia tension and improved ankle flexibility for functional tasks. Target Visit 12
--- NOTE | 2024-07-10 10:37 | PTOPEVAL1 ---
Assessment and note entered by Yara Moura, PT Evaluation Information Assessment Status Evaluation Diagnosis Left heel pain, equinus and tarsal tunnel syndrome ICD-10 Condition Codes (PT) Pain in left ankle and joints of left foot M25.572 ,Difficulty Walking R26.2,Weakness R53.1 Onset 05/21/24 Subjective Information Pt reports aching pain in the left foot that began at the beginning of May. Pain initially occurred when getting out of bed in the morning, upon standing after sitting for prolonged periods, and when standing or walking. Pt reports she got a cortisone injection in the L foot 6 weeks ago which has helped and she now only has pain when standing/walking for prolonged periods. She currently denies pain in the foot but does note an aching feeling. Pt also reports history of plantar fasciitis on the R foot that she received PT and cortisone shots for with minimal benefit, and eventually underwent a calf tendon release 4 years ago and is now pain-free. She also has bilateral tarsal tunnel syndrome and takes Lyrica with good benefit . Reported Pain Level Pain Score 0: Self Report Assessment PT Clinical Summary Mrs. More is a 54 year old female patient presenting to physical therapy for L heel pain. She has a history of plantar fasciitis on the R foot with bilateral tarsal tunnel syndrome, and is now having similar symptoms on her L foot. 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 She also notes moderate difficulty with getting in/out of her car, ascending/descending stairs, and recreational hobbies due to this pain. She demonstrates gross lower extremity weakness and bilateral gastroc/soleus tightness that may be contributing to her symptoms. Skilled PT intervention is indicated to address these deficits and help her return to her prior level of function. Plan of Care Interventions Electrical Stimulation,Gait Training,Hot Pack/Cold Pack,Intermittent Compression Pump,Manual Therapy ,Neuro Re-education,Patient/Caregiver Education, Therapeutic Activities,Therapeutic Exercise,Self- Care/Home Management PT Services Indicated Yes Treatment Frequency and 2x/week for 12 visits Duration These treatments will address the objective and functional deficits as defined above. The patient will be advanced safely and appropriately in order for the patient to progress towards his/her prior level of function. Additional exercises will be introduced and as well as a comprehensive home exercise program upon discharge, if needed, ?to ensure carryover of functional gains achieved in the clinic. This treatment plan has been reviewed and agreement upon by the patient.
--- NOTE | 2024-07-10 11:40 | PCPTNOTE ---
I reviewed the License Pending Therapist's documentation and agree with the findings.
--- NOTE | 2024-08-15 17:07 | PTOPPROG ---
Assessment and note entered by Altagracia Walden DPT Evaluation Information Assessment Status Progress - Pt Not Present Diagnosis Left heel pain, equinus and tarsal tunnel syndrome ICD-10 Condition Codes (PT) Pain in left ankle and joints of left foot M25.572 ,Difficulty Walking R26.2,Weakness R53.1 Onset 05/21/24 Subjective Information pt states her ankle continues to feel good and hasn't had pain in several days. pt reports she can now stand for 4 to 6 hours without pain. she reports independence with HEP Assessment PT Clinical Summary Ms. More is making good progress towards goals at this time. She demonstrates improved L LE strength and ROM as well as improved ability to stand for prolonged periods of time. Patient continues to have difficulty with single leg activities and impaired stability. She would benefit from continued skilled PT to address remaining impairments and return to PLOF. Plan of Care Interventions Electrical Stimulation,Gait Training,Hot Pack/Cold Pack,Intermittent Compression Pump,Manual Therapy ,Neuro Re-education,Patient/Caregiver Education, Therapeutic Activities,Therapeutic Exercise,Self- Care/Home Management Other Interventions TPDN PT Services Indicated Yes Treatment Frequency and continue with current POC Duration These treatments will address the objective and functional deficits as defined above. The patient will be advanced safely and appropriately in order for the patient to progress towards his/her prior level of function. Additional exercises will be introduced and as well as a comprehensive home exercise program upon discharge, if needed, ?to ensure carryover of functional gains achieved in the clinic. This treatment plan has been reviewed and agreement upon by the patient.
--- NOTE | 2024-09-01 07:31 | OPREHPOC ---
Outpatient Therapy Plan of Care This is a Multidisciplinary Plan of Care that may contain components documented by all disciplines (PT, OT, and ST.) PT Problem 1 PT Problem #1 Knowledge Deficit PT Goal 1 Goal / Goal Update Independent with HEP Target Visit 2 Progress Met PT Problem 2 PT Problem #2 Impaired Strength PT Goal 1 Goal / Goal Update Improve gross lower extremity strength to 5/5. Improve gross lower extremity strength 5/5 for adequate dynamic stability and mechanics with functional tasks. Target Visit 12 Progress Partially Met PT Problem 3 PT Problem #3 Impaired Functional Mobility PT Goal 1 Goal / Goal Update Pt to be able to stand for more than 1 hour without onset of pain. Pt to be able to stand for more than 1 hour without pain to complete normal work activities. Target Visit 12 Progress Met PT Problem 4 PT Problem #4 Impaired Flexibility PT Goal 1 Goal / Goal Update Pt to reach 10 degrees of active ankle dorsiflexion with knee extended bilaterally for improved ankle flexibility. Pt to improve gastroc/soleus flexibility for reduced plantar fascia tension and improved ankle flexibility for functional tasks. Target Visit 12 Progress Met
--- NOTE | 2024-09-01 07:32 | PTOPDC ---
Assessment and note entered by JT File, PT Evaluation Information Assessment Status Discharge Diagnosis Left heel pain, equinus and tarsal tunnel syndrome ICD-10 Condition Codes (PT) Pain in left ankle and joints of left foot M25.572 ,Difficulty Walking R26.2,Weakness R53.1 Onset 05/21/24 Subjective Information pt states she has occasional pain in her heel when standing in the same place for a log period of time. overall, she is better, and reports she is ready for DC. Assessment PT Clinical Summary mrs. rodriguez presents to skilled PT with no pain in the L ankle/heel. as of this date, she has met all goals for skilled PT, except 5/5 strength goal . she is compliant with her HEP, and is ready to DC therapy today. Plan of Care PT Services Indicated Yes
== END 2024-08-17 20:00 | disposition home or self-care (01) ==
LOC: CHSPT 07:57
DX: M79.672 Pain in left foot (principal)
CPT/HCPCS: 97110; 97112; 97140; 97150; 97161

== ENCOUNTER 2024-10-17 13:53 | Outpatient (CLI) | payer BC, SELFPAY ==
--- NOTE | ~2024-10-17 | MM_ITS ---
EXAMINATION: MM screening richard BI w sarah HISTORY: Screening TECHNIQUE: Craniocaudal and mediolateral oblique 3-D tomosynthesis images were obtained and synthetic 2-D images were generated. CAD analysis was submitted and interpreted. COMPARISON: Comparison to multiple prior studies sequentially, with oldest reviewed study dated 09/04. BREAST PARENCHYMAL COMPOSITION: Not dense: There are scattered areas of fibroglandular density. FINDINGS: There is no evidence of suspicious mass, calcification, or architectural distortion to sugg est malignancy in either breast. There has been no suspicious interval change. IMPRESSION: 1. No mammographic evidence of malignancy. 2. Recommend routine screening mammography in one year. BI-RADS Category 1: Negative Reviewed, dictated and finalized at location A.
--- OUTSIDE RECORDS SUMMARY | 2024-10-17 15:13 | XMS_ITS | Clinical Summary ---
Author Organization [facility] Address [address] [place] [address] Care Team Providers Care Paginator Name Role Phone Abdiaziz Ruiz MD Primary Care Provider [phone] Yinka Escobedo MD Unavailable [phone] Allergies No known active allergies Medications estrogens-methylTEST OSTERone (EEMT,COVARYX) 1.25-2.5 mg per tablet daily 1 Active progesterone (PROMETRIUM) 100 mg capsule 1 Active pregabalin (LYRICA) 75 mg capsule Take 1 capsule (75 mg total) by mouth daily Active aspirin 81 mg enteric coated tablet Take 1 tablet (81 mg total) by mouth daily Active cholecalciferol, vitamin D3, (VITAMIN D3 ORAL) Take by mouth Active XSWSU-9-[id number]-FISH OIL ORAL Take by mouth Active UNABLE TO FIND Dim 150 mg Acti ve levocetirizine dihydrochloride (XYZAL ORAL) Take by mouth Active multivitamin capsule Take 1 capsule by mouth daily Active Active Problems Problem Noted Date Diagnosed Date Abnormal LFTs 05/02/2022 Overview (05/07/2022): Persistent mild elevation of AST, ALT, GGT for at least 1 year. US RUQ 05/2021 with gallbladder sludge but normal liver. Negative MARQUIS, AMA, normal ferritin, TSH. Will obtain ceruloplasmin, alpha 1 antitrypsin and celiac labs. Discussed goal of reducing weight by at least 10lb and will repeat labs. If not improved, will discuss next steps including biopsy to determine diagnosis of SEWELL. Assessment & Plan (05/27/2023 5:[address] LIGHT REPAIRER): Etiology unclear; normal liver tests within the last week. The normalization of liver biochemistries in the face of weight loss suggests this may have been related to non-alcoholic steatohepatitis. As long as she maintains her current weight or loses weight, I suspect the liver biochemistries will remain normal. At this point, I do not think she needs to return in follow-up I will be happy to see her if there is a need. Foot pain, bilateral 10/19/2018 Surgical History Surgery Date Site/Laterality Comments VEIN SURGERY Medical History Medical History Date Comments Plantar fasciitis Family History Medical History Relation Name Comments No Known Problems Father No Known Problems Mother Relation Name Status Comments Father Mother Social History Tobacco Use Types Packs/Day Years Used Date Smoking Tobacco: Former Smokeless Tobacco: Never Tobacco Cessation:Counseling Given: Not Answered AUDIT-C Answer Date Recorded Q1: How often do you have a drink containing alcohol? Never 05/07/2022 Q2: How many drinks containi ng alcohol do you have on a typical day when you are drinking? 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 on file Not on file Not on file Obstetrics History Last Filed Vital Signs Vital Sign Reading Time Taken Comments Blood Pressure 141/84 05/27/2023 3:[address] LIGHT REPAIRER Pulse 76 05/27/2023 3:[address] LIGHT REPAIRER Temperature 36.6 C (97.9 F) 05/27/2023 3:[address] LIGHT REPAIRER Respiratory Rate - - Oxygen Saturation - - Inhaled Oxygen Concentration - - Weight 88.9 kg (196 lb) 05/27/2023 3:[address] LIGHT REPAIRER Height 170.2 cm (5' 7 ) 05/27/2023 3:[address] LIGHT REPAIRER Body Mass Index 30.7 05/27/2023 3:[address] LIGHT REPAIRER Plan of Treatment Health Maintenance Due Date Last Done Comments Breast Cancer Screening-Mammogram 1969 Cervical Cancer Screening 1969 Colon Cancer Screening-Colonoscopy 1969 Depression Screening 1969 Hepatitis C Screening 1969 Hepatitis B Screening 1987 Regular Well Visit/Exam 18-64 1987 Zoster Vaccine (1 of 2) 2019 Influenza Vaccine (#1) 2024 DTaP/Tdap/Td Vaccine (2 - Td or Tdap) 12/04/2026 12/04/2016 Pneumococcal vaccine <65 Aged Out No longer eligible based on patient's age to complete this topic Insurance [facility] [employer] [facility] AN[facility] CHO[facility] Care Teams Paginator Relationship Specialty Start Date End Date Abdiaziz Ruiz MD PCP - General Internal Medicine 07/23/20 Yinka Escobedo MD Referring Physician Otolaryngology 07/23/20
--- OUTSIDE RECORDS SUMMARY | 2024-10-17 15:13 | XMS_ITS | Referral Summary ---
Author Organization [facility] Address [address] [place] [address] Care Team Providers Care Business Office Technology Instructor Name Role Phone Abdiaziz Ruiz MD Primary Care Provider [phone] Yinka Escobedo MD Unavailable [phone] Allergies No known active allergies Medications [...] (VITAMIN D3 ORAL) Take by mouth Active [id number]-FISH OIL ORAL Take by mouth Active UNABLE [...] SEWELL. Assessment & Plan (05/27/2023 5:40 PM SPRINKLER WORKER): Etiology unclear; normal liver tests within the [...] is a need. 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 on file Not on file Not on file Last Filed Vital Signs Vital Sign Reading Time Taken Comments Blood Pressure 141/84 05/27/2023 3:08 PM SPRINKLER WORKER Pulse 76 05/27/2023 3:08 PM SPRINKLER WORKER Temperature 36.6 C (97.9 F) 05/27/2023 3:08 PM SPRINKLER WORKER Respiratory Rate - - Oxygen Saturation - - Inhaled Oxygen Concentration - - Weight 88.9 kg (196 lb) 05/27/2023 3:08 PM SPRINKLER WORKER Height 170.2 cm (5' 7 ) 05/27/2023 3:08 PM SPRINKLER WORKER Body Mass Index 30.7 05/27/2023 3:08 PM SPRINKLER WORKER Plan of Treatment Not on file [facility] ANTHEM ACCESS CHOICE TNA [facility] PPO ANTHEM ACCESS CHOICE Care Teams Business Office Technology Instructor Relationship Specialty Start Date End Date Abdiaziz Ruiz MD PCP - General Internal Medicine 07/23/20 Yinka Escobedo MD Referring Physician Otolaryngology 07/23/20
--- OUTSIDE RECORDS SUMMARY | 2024-10-17 15:13 | XMS_ITS | Data Portability ---
Author Organization [facility], [address] [facility] ([place]) Address [address] [place] [address] Care Team Providers Care Underwriting Clerks Supervisor Name Role Phone CARA GUTIERREZ Primary Care Provider [phone] Assessment Encounter Date Assessment Date Assessment LastModified by Organization Details LastModified Time 12/29/2023 12/29/2023 PLAN: Diagnostic Sleep STUDY Consider repeat MRI Brain in 6 months f/u 6 months Olalla Sleepiness Scale 9 ASSESSMENT AND PLAN: Genet More is a 53-year-old female who presents today to establish care for concerns for excessive fatigue in correlation with abnormal MRI. There were white matter disease changes seen on the MRI. This has been stable since 2020. I do not think this is consistent with demyelinating disorder such as multiple sclerosis and certainly do not think this would be vascular in nature. I think this is simply chronic microvascular ischemic changes. At this point, I recommend she proceed with her sinus procedure. In addition to this, we will screen with an Olalla sleepiness scale and proceed with a diagnosed sleep study to rule out etiologies such as obstructive sleep apnea. We will have her follow-up in 6 months. If she has had no improvement within a 6-month time despite addressing the sinus issue and screening for sleep apnea and going forward with CPAP therapy, we will then consider repeat MRI brain without contrast in comparison to monitor the white matter changes. I personally spent a total of 30 minutes on the patient on this date of service including both xkbz-oq-pisz and wra-yxmt-yi-face time excluding any separately reportable services. harriett torres Not available 12/30/2023 06:16:34 Plan of Treatment Reminders Order Date Submit Date Provider Last Modified By Organization Details Last Modified Time Details Appointments None record ed. Lab None record ed. Referral None record ed. Procedures None record ed. Surgeries None record ed. Imaging None record ed. Medication Orders None record ed. Patient TargetsNo targets recorded. Patient InstructionsNo instructions recorded. Reason for Referral None Reported. Problems Name Problem SNOMED Code Status Onset Date Resolution Date Notes Provider Name and Address Organization Details Recorded Time Excessive daytime sleepiness - normal night sleep 814021847 Active 2023 Faviola Alexander MD [address] [place] [address], [id number] 4 13:33:52 White matter disease 4687327498887 9104 Active 2023 Faviola Alexander MD [address] [place] [address], [phone], [facility] 4 13:34:03 Fatigue 32009022 Active 2023 Lola Sandy [facility] 4 13:05:50 Problem Notes None recorded. Medical Equipment None Reported. Allergies No known drug allergies Medications Name Sig Start Date Stop Date Status Note LastModified by Organization Details LastModified Time topiramate 25 mg tablet active Not Available Not Available No t Available metronidazole 0.75 % topical gel active Not Available Not Available Not Available progesterone micronized 100 mg capsule active Not Available Not Available N ot Available pregabalin 75 mg capsule active Not Available Not Available N ot Available Vitals Date Recorded Body weight Heart rate Oxygen saturation Oxygen saturation in Arterial blood by Pulse oximetry Systolic blood pressure Diastolic blood pressure Provider Name and Address Organization Details Last Updated DateTime 4 58716.0 8 g 94 /min 96 % 96 % 110 mm[Hg] 70 mm[Hg] Larry Umanzor [facility] 4 13:06:00 Social History Question Answer Notes LastModified by Organizat ion Details LastModified Time Do You Have An Advance Directive? No [email or web address] Information not available 12/10/2023 What Is Your Level Of Alcohol Consumption? Occasional [email or web address] Information not available 12/10/2023 How Many Times Per Week Do You Consume Alcohol? Less Than 1 Time Per Week [email or web address] Information not available 12/10/2023 What Is Your Level Of Caffeine Consumption? Occasional [email or web address] Information not available 12/10/2023 Are You Currently Employed? Yes [email or web address] Information not available 12/10/2023 What Is Your Occupation? Job Hand [email or web address] Information not available 12/10/2023 How Many Times Per Week Do You Exercise? 1-2 Times Per Week [email or web address] Information not available 12/10/2023 E-cigarettes Or Vaporization Device? Uses Non-nicotine Containing Device [email or web address] Information not available 12/10/2023 When Did You Quit Smoking? 1996 [email or web address] Information not available 12/10/2023 Do You Have A Medical Power Of [employer]crew[employer]? No [email or web address] Information not available 12/10/2023 What Was The Date Of Your Most Recent Tobacco Screening? 12/15/2023 [email or web address] Information not available 12/10/2023 What Is Your Relationship Status? [email or web address] Information not available 12/10/2023 Do You Use Any Illicit Or Recreational Drugs? No [email or web address] Information not available 12/10/2023 Sex: Unknown Functional Status Question Answer Note LastModified by Organizat ion Details LastModified Time What is your exercise level? Occasional [email or web address] Information not available 12/10/2023 Mental Status None recorded. Family History Relationship Description Onset Age of this Age Resolved Age Notes LastModified by Organization Details LastModified Time Sister Family history of malignant neoplasm [email or web address] Not available 2023 23:15:58 Brother Family history of malignant neoplasm [email or web address] Not available 2023 23:15:58 Brother Heart disease [email or web address] Not available 2023 23:15:58 Mother Diabetes mellitus [email or web address] Not available 2023 23:15:58 Mother Kidney disease [email or web address] Not available 2023 23:15:58 Father Heart disease [email or web address] Not available 2023 23:15:58 Father Cerebrovascu lar accident [email or web address] Not available 23:15:58 Medical History Condition Response Diabetes N Anxiety Disorder N Bleeding Disorder N Attention-deficit Hyperactivity Disorder N High Blood Pressure N Arthritis N Hyperlipidemia N Cancer N Stroke N Thyroid Problems N Asthma N Depression N COPD N Anemia N Seizures N Heart Disease N Fibromyalgia N Osteoporosis N Kidney Disease N Gynecological HistoryNo gynecological history recorded. Obstetrics History GPAL:G 0 P 0 0 0 0 Past Encounters Encounter ID Performer Location Encounter Start Date Encounter Closed Date Diagnosis/Indication Diagnosis SNOMED-CT Code Diagnosis ICD10 Code Diagnosis Note [id number] Faviola Alexander MD [place] [facility] ([place]) [address] [place] [address] 12/29/2023 12:49:41 12/29/2023 15:13:43 Excessive daytime sleepiness - normal night sleep 994300412 G47.19 White matter disease 019 [id number] 7966113 R90.82 Health Concerns Section Related Observation LastModified by Organization Detai ls LastModified Time None Recorded Concern Status LastModified by Organization Details LastModified Time None Recorded Advance Directives Directive N: Payers Encounter Date Sequence Insurance Name Policy Number Policy Ortega Covered Member ID Ortega Member ID Guarantor Name 12/29/2023 1 [facility] ([facility] [id number] Genet More [id number] Genet More Notes Date Note Type Note Provider Name and Address Organization Details Recorded Time 12/29/2023 text/html Genet More i s a 53-year-old female who presents today to establish care for recently obtained abnormal MRI. She has been dealing with increasing and progressive fatigue since August 2023. She notes she sleeps upwards of 12 hours a day and does not feel well rested. She reports a history of snoring. She has never been evaluated for obstructive sleep apnea. She during the daytime has difficulty with many activities because of fatigue. She does not report any problems with sleep paralysis. She denies any hallucinations or delusions prior to onset of sleep or waking from sleep. She has never had any cataplectic reactions such as losing strength with laughing, crying or fear reactions. She has no known problem with this as a younger individual. This is a new onset issue. She was found to have significant sinus infection. This involves the maxillary, ethmoid and sphenoid sinus with thickening within the right maxillary sinus. She is following with ENT for this. Unfortunately, this was not something that was able to be treated with antibiotic therapy. She has a balloon procedure scheduled with ENT upcoming. There is question whether or not this is causing problems for her. In evaluation, she had an MRI brain without contrast. This showed mild periventricular and subcortical deep white matter changes. In comparison to prior imaging, this was reported to be unchanged to a scan obtained in September 2020 which is greater than 3 years prior. She does not report any additional neurologic concerns. Faviola Alexander MD [address], [address], [facility] 12/31/2023 13:37:52 OBGyn Episode No OBEpisode recorded.
== END 2024-10-17 13:54 | disposition home or self-care (01) ==
LOC: CHSIMG 13:56
PROVIDERS: PCP Internal Medicine; Visit Provider Obstetrics & Gynecology
DX: Z12.31 Encounter for screening mammogram for malignant neoplasm of breast (principal)
CPT/HCPCS: 77063; 77067